=== PATIENT | male | born 1975 | race Caucasian/White ===

== ENCOUNTER 2021-05-14 20:12 | Emergency (ER) | payer OTHER ==
[~2021-05-14] VITALS: Ht 175.3 cm; Wt 95.5 kg
[2021-05-14 22:18] VITALS: BP 170/109
[2021-05-14] MEDS ORDERED: AMOX500C2 PO (23:58)
[2021-05-14] MEDS ORDERED: CLOB15CR4 TOP (23:58)
== END 2021-05-15 00:12 | disposition home or self-care (01) ==
LOC: ER 22:12
DX: L23.7 Allergic contact dermatitis due to plants, except food (principal); H66.92 Otitis media, unspecified, left ear; Z79.2 Long term (current) use of antibiotics; Z79.899 Other long term (current) drug therapy
CPT/HCPCS: 99283

== ENCOUNTER 2024-05-12 14:21 | Emergency (ER) | payer MEDICAID ==
[~2024-05-12] VITALS: Ht 175.3 cm; Wt 99.2 kg
[~2024-05-12 14:21] MED LIST: CLOB15CR4 TOP
[2024-05-12 14:26] VITALS: TEMP 97.8
[2024-05-12] MEDS ORDERED: ATEN-169 PO (17:06)
[2024-05-12 17:12] VITALS: BP 189/106; PULSE 63; RESP 16; O2SAT 94
== END 2024-05-12 17:14 | disposition home or self-care (01) ==
LOC: ER 14:22
DX: I10 Essential (primary) hypertension (principal); R51.9 Headache, unspecified; Z79.899 Other long term (current) drug therapy
CPT/HCPCS: 99283

== ENCOUNTER 2024-05-30 19:52 | Emergency (ER) | payer MEDICAID ==
[~2024-05-30] VITALS: Ht 175.3 cm; Wt 95.5 kg
[~2024-05-30 19:52] MED LIST changes: +ATEN-169 PO
[2024-05-30 20:04] VITALS: BP 151/85; PULSE 61; RESP 16; TEMP 98.9; O2SAT 96
[2024-05-30] MEDS ORDERED: ATEN-169 PO (20:21)
[2024-05-30] MEDS ORDERED: LOSA100T58 PO (20:21)
== END 2024-05-30 20:37 | disposition home or self-care (01) ==
LOC: ER 19:52
DX: Z00.00 Encounter for general adult medical examination without abnormal findings (principal); I10 Essential (primary) hypertension; Z76.0 Encounter for issue of repeat prescription; Z79.899 Other long term (current) drug therapy
CPT/HCPCS: 99281

== ENCOUNTER 2024-11-04 09:42 | Emergency (ER) | payer MEDICAID ==
[~2024-11-04] VITALS: Ht 175.3 cm; Wt 101.9 kg
[~2024-11-04 09:42] MED LIST changes: -ATEN-169 PO; +LOSA100T58 PO
[2024-11-04 09:54] VITALS: TEMP 99.1
[2024-11-04 11:00] LABS: HEMOGLOBIN 16.5 g/dl (14.0-17.9); LYMPHOCYTES # (AUTO) 0.5 X10'3 (1.1-4.8); MEAN PLATELET VOLUME 7.5 FL (7.4-10.4); MONOCYTES # (AUTO) 0.6 X10'3 (0-0.9); RED CELL DISTRIBUTION WIDTH 13.4 % (11.5-14.5)
[2024-11-04 11:01] LABS: BASOPHILS % (AUTO) 0.7 % (0-1); EOSINOPHILS % (AUTO) 1.5 % (0-6); HEMATOCRIT 47.6 % (42.0-52.0); LYMPHOCYTES % (AUTO) 19.6 % (21-51); MEAN CORPUSCULAR HEMOGLOBIN 29.4 PG (27.0-31.0); MEAN CORPUSCULAR HGB CONC 34.6 g/dL (33.0-36.5); MONOCYTES % (AUTO) 21.6 % (2-12); NEUTROPHILS # (AUTO) 1.6 X10'3 (1.8-7.7); NEUTROPHILS % (AUTO) 56.6 % (42-75); PLATELET COUNT 208 X10'3 (140-440); WHITE BLOOD COUNT 2.7 X10'3 (4.5-11.0)
[2024-11-04 11:18] LABS: ALANINE AMINOTRANSFERASE 62 U/L (12-78); ALBUMIN 3.8 G/DL (3.4-5.0); ALBUMIN/GLOBULIN RATIO 0.8 (1.1-1.5); ALKALINE PHOSPHATASE 95 IU/L (46-116); ANION GAP 8 (8-16); ASPARTATE AMINO TRANSFERASE 40 U/L (10-37); BILIRUBIN,TOTAL 0.4 MG/DL (0.1-1.0); BLOOD UREA NITROGEN 14 MG/DL (7-18); BUN/CREATININE RATIO 10.6 (10.0-20.0); CALCIUM 8.6 MG/DL (8.5-10.1); CHLORIDE 99 MMOL/L (99-107); CREATININE 1.32 MG/DL (0.60-1.10); GLUCOSE 100 MG/DL (70-104); LIPASE 30 U/L (16-77); SODIUM 137 MMOL/L (135-145); TOTAL CARBON DIOXIDE 29.7 MMOL/L (24-32); TOTAL PROTEIN 8.4 G/DL (6.4-8.2); eCRCL 67 ML/MIN; eGFR 57 ML/MIN
[2024-11-04 11:49] LABS: PLATELET ESTIMATE NORMAL; TOTAL CELLS COUNTED 100
[2024-11-04 13:07] LABS: BILIRUBIN,URINE NEGATIVE (Neg); CLARITY,URINE CLEAR (Clear); COLOR,URINE YELLOW (Yellow); GLUCOSE, URINE NEGATIVE (Neg); KETONES,URINE NEGATIVE (Neg); LEUKOCYTE ESTERASE ,URINE NEGATIVE (Neg); NITRITES, URINE NEGATIVE (Neg); OCCULT BLOOD,URINE TRACE-INTACT (Neg); PH,URINE 6.5 (4.8-8.0); PROTEIN,URINE NEGATIVE (Neg); UROBILINOGEN,URINE 0.2 E.U/dL (0.2-1.0)
[2024-11-04 13:16] LABS: UA COLLECTION TYPE NON-SPECIFIED
[2024-11-04 13:17] LABS: BACTERIA,URINE NONE SEEN /HPF (Neg); RBC,URINE 0-2 /HPF (0-2); WBC,URINE 0-4 /HPF (0-4)
[2024-11-04 13:18] LABS: HYALINE CASTS 0-3 /LPF (NEGATIVE); SQUAMOUS EPITHELIAL CELL,UR NONE SEEN /LPF (FEW)
[2024-11-04 13:40] VITALS: BP 187/124; PULSE 87; RESP 16; O2SAT 100
[2024-11-04] MEDS ORDERED: LOSA100T58 PO (13:42)
[2024-11-04] MEDS ORDERED: ATEN50TA PO (13:42)
== END 2024-11-04 13:57 | disposition home or self-care (01) ==
LOC: ER 09:42
DX: K40.20 Bilateral inguinal hernia, without obstruction or gangrene, not specified as recurrent (principal); R10.31 Right lower quadrant pain; K59.00 Constipation, unspecified; Z79.899 Other long term (current) drug therapy; Z20.822 Contact with and (suspected) exposure to COVID-19
CPT/HCPCS: 74176; 80053; 81001; 83690; 85007; 85025; 87502; 87503; 87811; 99285